=== PATIENT | female | born 1940 | race Caucasian/White ===

== ENCOUNTER → 2017-08-09 | Outpatient (CLI) | payer BC | LOC: MAMMO 13:09 | PROVIDERS: ATTEND Family Medicine | DX: Z12.31 Encounter for screening mammogram for malignant neoplasm of breast (principal) | CPT/HCPCS: G0202 ==

== ENCOUNTER → 2017-09-14 | Outpatient (CLI) | payer BC ==
--- NOTE | 2017-09-15 08:25 | Diagnostic Imaging Report ---
#[id number] - MGDXLTUNI #UNILATERAL LEFT DIGITAL DIAGNOSTIC MAMMOGRAM WITH CAD: 09/14/2017 Comparison is made to exam dated: 08/09/2017 mammogram - [facility]. Current study contains 3 films. There are scattered fibroglandular elements in the left breast. Current study was also evaluated with a Computer Aided Detection (CAD) system. There is a round mass in the left breast at 12 o'clock middle depth that measures 8 mm. There is benign appearing calcification and vascular calcification also identified. No other significant masses or calcifications are seen in the breast. IMPRESSION: INCOMPLETE: NEEDS ADDITIONAL IMAGING EVALUATION The round mass in the left breast resembles a cyst but is indeterminate. An ultrasound is recommended and will be performed today. Riaz Varela Jr., D.O. cw/:09/14/2017 14:45:52 Senior Foreman: Darlin HALL(Randi)(M), [facility] letter sent: Additional Imaging Needed Mammogram BI-RADS: 0 Indeterminate
--- NOTE | 2017-09-15 08:25 | Diagnostic Imaging Report ---
#[id number] - USBRELIMLT ULTRASOUND OF THE LEFT BREAST : 09/14/2017 Comparison is made to exams dated: 09/14/2017 mammogram and 08/09/2017 mammogram - [facility]. Color flow and real-time ultrasound were performed on the left breast at the area of interest. There is a benign cyst measuring 8 x 4 x 6 mm at the 11-12 o'clock position 2 cm from the nipple. IMPRESSION: BENIGN There is no sonographic evidence of malignancy. A 1 year screening mammogram is recommended. Riaz Varela Jr., D.O. cw/:09/14/2017 14:48:53 Director Project Management: CATY ADAIR, [facility] letter sent: Normal Exam Ultrasound BI-RADS: 2 Benign
== END ==
LOC: MAMMO 13:26
PROVIDERS: ATTEND Family Medicine
DX: N63.20 Unspecified lump in the left breast, unspecified quadrant (principal)